=== PATIENT | male | born 1950 | race Caucasian/White ===

== ENCOUNTER 2024-02-13 15:07 | Emergency (ER) | payer MEDICARE, BC ==
[~2024-02-13] VITALS: Ht 175.3 cm; Wt 71.7 kg
[~2024-02-13 15:07] MED LIST: CHOL100045 PO; DENO60DI SQ; DIAZ10TA PO; DIAZ5TAB4 PO; ETAN50SY SQ; FAMO20TA8 PO; FERR325T6 PO; HYDR-4354 PO; MECL25TA3 PO; METO25TA6 PO; SIMV10TA98 PO; TAMS-3 PO; [UNRECOGNIZED DRUG - OTHER] PO
[2024-02-13 15:30] VITALS: O2SAT 96
[2024-02-13] MEDS: ONDANSETRON 4 MG/2 ML VIAL IV ONE (17:48)
[2024-02-13] MEDS: IV NORMAL SALINE 1000 ML BAG IV ONE (17:48)
[2024-02-13] MEDS ORDERED: ONDANSETRON 4 MG/2 ML VIAL ONE (17:48)
[2024-02-13 18:38] LABS: MEAN CORPUSCULAR VOLUME 97.9 fL (73.0-96.2)
[2024-02-13 18:44] LABS: BASOPHILS # (AUTO) 0.1 K/UL (0.0-0.2); BASOPHILS % (AUTO) 1.2 % (0.0-2.0); DIFFERENTIAL COMMENT 1; EOSINOPHILS # (AUTO) 0.7 K/uL (0.0-0.7); EOSINOPHILS % (AUTO) 7.8 % (0.0-7.0); HEMOGLOBIN 12.5 g/dL (12.5-16.3); LYMPHOCYTES # (AUTO) 3.7 K/uL (0.8-4.8); LYMPHOCYTES % (AUTO) 40.6 % (20.5-51.5); MEAN CORPUSCULAR HGB CONC 34 g/dL (32.5-36.3); MONOCYTES % (AUTO) 10.7 % (0.0-11.0); NEUTROPHILS # (AUTO) 3.6 K/uL (1.8-8.9); NEUTROPHILS % (AUTO) 39.7 % (38.5-71.5); PLATELET COUNT (AUTO) 328 K/uL (152-348); RED BLOOD CELL COUNT(AUTO) 3.78 MIL/uL (4.06-5.63); RED CELL DISTRIBUTION WIDTH 13.5 % (12.1-16.2); WHITE BLOOD COUNT (AUTO) 9.1 K/uL (3.6-10.2)
[2024-02-13 18:44] LABS: *BILIRUBIN,URIN NEGATIVE (NEGATIVE); *BLOOD, URINE NEGATIVE (NEGATIVE); *CLARITY,URINE CLEAR (CLEAR); *COLOR,URINE YELLOW (YELLOW); *KETONES,URINE NEGATIVE (NEGATIVE); *PROTEIN,URINE NEGATIVE (NEGATIVE); *UROBILINOGEN,URINE 0.2 E.U./dl (NORMAL); LEUKOCYTE ESTERASE ,URINE NEGATIVE (NEGATIVE); NITRITE, URINE NEGATIVE (NEGATIVE); PH,URINE 5.5 (5.0-8.0); UGLUCOSE NEGATIVE (NEGATIVE)
[2024-02-13 18:47] LABS: CALCIUM 9.6 mg/dL (8.5-10.1); CARBON DIOXIDE 28 mmol/L (21-32); CHLORIDE 102 mmol/L (98-107); CREATININE 1.1 mg/dL (0.6-1.3); GLUCOSE 95 mg/dL (74-106); POTASSIUM 3.8 mmol/L (3.5-5.1); SODIUM SERUM 140 mmol/L (136-145); UREA NITROGEN, BLOOD 30 mg/dL (7-18)
[2024-02-13 19:01] LABS: ALANINE AMINOTRANSFERASE 22 U/L (16-63); ALBUMIN 4.1 g/dL (3.4-5.0); ALKALINE PHOSPHATASE 45 U/L (50-136); ASPARTATE AMINOTRANSFERASE 12 U/L (15-37); BILIRUBIN,TOTAL 0.3 mg/dL (0.2-1.0); LIPASE 12 U/L (16-77); TOTAL PROTEIN, SERUM 7.9 g/dL (6.4-8.2)
[2024-02-13 19:09] LABS: BILIRUBIN,DIRECT < 0.1 mg/dL (0.0-0.2)
== END 2024-02-13 21:33 | disposition left against medical advice (07) ==
LOC: ER 15:10
DX: R11.2 Nausea with vomiting, unspecified (principal); F17.200 Nicotine dependence, unspecified, uncomplicated; Z98.890 Other specified postprocedural states; Z79.899 Other long term (current) drug therapy; Z20.822 Contact with and (suspected) exposure to COVID-19
CPT/HCPCS: 99285; 74176; 96374; 96361; 71045; 87426; 80076; 80048; 81003; 83690; 85025; 85730; 87040 ×2; 84484; 36415; 93005; 83605; 87086; J2405; J7040 ×2; A4606; A4663